=== PATIENT | female | born 1955 | race Caucasian/White ===

== ENCOUNTER 2017-04-07 14:00 | Outpatient (RCR) | payer BC ==
[~2017-04-07 14:00] MED LIST: HYDR-6045 RC; LIDO30CR3 TP; LORA-1455 PO; ONDA8TAB94 PO; XELOD500PT GT
--- NOTE | 2017-04-07 17:22 | PT PLAN OF CARE ---
Physician: GARETH Tesfaye Patient is being seen: 1x/MO Therapist: Kayla Carcamo, PT, DPT, CLT Medical Diagnosis: Stage IV Rectal Cancer Treatment Diagnosis: Stage IV Rectal Cancer Date of Onset: 12/08/15 Date of Initial Evaluation: 01/06/17 Date patient was last seen: 04/07/17 Number of treatments: 7 Number of cancellations/No shows: 0 INTERVENTIONS: Manual Therapy/STM/MET Strengthening/condition Ice/Heat Range of Motion Spinal Stabilization Ultrasound Stretching Iontophoresis Neuromuscular Re-ed Closed Chain Program Electrical Stim Posture/Body mechanics Gait Trg/Balance Trg Biofeedback Home Exercise Program Mech./Manual Traction Therapeutic Activities Pelvic Floor GOALS: In 2 months pt will maintain FACT-G scores >100/108 indicating maintenance of functional status and well-being throughout treatment. In 2 months pt will maintain strength of LE B of > 4/5 in all major muscle groups indicating increased functional ability to perform ADL's. In 4 months pt will maintain FACT-G scores >90/108 indicating maintenance of functional status and well-being throughout treatment. PATIENT'S GOAL: Maintain function and QOL. Status of Patient's Goals: In Progress Patient Compliance: Good Prognosis: Fair Reasons for continuing therapy:Pt shows good resolvent of previous piriformis syndrome and SIJ pain without any current complaints. Mild neuropathy has developed which was reduced with manual therapy and exercise. Pt shows slight edema which reduces with gravity at this time in the L LE. Circumferential measurements were made with recommendation for possible compression garments. Pt was educated on the possibility of onset of lymphedema with inguinal lymph nodes affected and will be monitored for progression of status at next treatment session. Posture: Forward trunk lean. ROM: LE and UE ROM WFL Strength: LE MMT: Hip: flexion: B 5/5, ext: L 4/5, R 4+/5, Abd: B 4+/5, Add: B 4 /5, Knee: Flexion: L 4+/5, R 5/5, Ext: B 5/5, Ankle: PF/DF: B 5/5 Palpation: Edema present in the L LE from the hip to the ankle. Mild pitting is noted on the anterior aspect of the L parikh. Edema is soft to the touch without fibrosis or any skin changes or redness. Pt denies any tenderness with palpation. Negative Stemmer's sign. Outcome Measures: FACT-G Outcome measure Initial Eval: PWB: 26, SWB: 28, EWB: 24 , FWB: 28, Total: 106 FACT-G Outcome measure Initial 04/07/17: PWB: 26, SWB: 24.5, EWB: 24, FWB: 26, Total: 100.5 ECOG Performance Status: Grade 2 Sensation: Neuropathy noted in the fingers and toes B. If you have any questions or concerns, please feel free to contact me at [phone]. Thank you, Kayla Carcamo, PT, DPT, CLT MTDD
--- NOTE | 2017-07-03 08:21 | PT PLAN OF CARE ---
Physician: GARETH Tesfaye Patient is being seen: 1x/MO Therapist: Kayla Carcamo, PT, DPT, CLT Medical Diagnosis: Stage IV Rectal Cancer Treatment Diagnosis: Stage IV Rectal Cancer Date of Onset: 12/08/15 Date of Initial Evaluation: 01/06/17 Date patient was last seen: 04/07/17 Number of treatments: 7 Number of cancellations/No shows: 0 INTERVENTIONS: Manual Therapy/STM/MET Strengthening/condition Ice/Heat Range of Motion Spinal Stabilization Ultrasound Stretching Iontophoresis Neuromuscular Re-ed Closed Chain Program Electrical Stim Posture/Body mechanics Gait Trg/Balance Trg Biofeedback Home Exercise Program Mech./Manual Traction Therapeutic Activities Pelvic Floor GOALS: In 2 months pt will maintain FACT-G scores >100/108 indicating maintenance of functional status and well-being throughout treatment. MET In 2 months pt will maintain strength of LE B of > 4/5 in all major muscle groups indicating increased functional ability to perform ADL's. MET In 4 months pt will maintain FACT-G scores >90/108 indicating maintenance of functional status and well-being throughout treatment. MET PATIENT'S GOAL: Maintain function and QOL. Status of Patient's Goals: 3/3 MET Patient Compliance: Good Prognosis: Fair Reasons for discharge from therapy: Judith is to discharge from physical therapy at this time secondary to pt progressing to oral medication only for oncological treatment and completion of 3/3 functional goals. At the time of discharge pt showed good resolvent of previous piriformis syndrome and SIJ pain without any current complaints. Mild neuropathy has developed which was reduced with manual therapy and exercise. Pt was to be monitored for development of edema but has had no reported problems with this since. Upon discharge pt is to continue with HEP neuropathy and strength exercises and stretching for continued progress. Posture: Forward trunk lean. ROM: LE and UE ROM WFL Strength: LE MMT: Hip: flexion: B 5/5, ext: L 4/5, R 4+/5, Abd: B 4+/5, Add: B 4 /5, Knee: Flexion: L 4+/5, R 5/5, Ext: B 5/5, Ankle: PF/DF: B 5/5 Palpation: Edema present in the L LE from the hip to the ankle. Mild pitting is noted on the anterior aspect of the L parikh. Edema is soft to the touch without fibrosis or any skin changes or redness. Pt denies any tenderness with palpation. Negative Stemmer's sign. Outcome Measures: FACT-G Outcome measure Initial Eval: PWB: 26, SWB: 28, EWB: 24 , FWB: 28, Total: 106 FACT-G Outcome measure Initial 04/07/17: PWB: 26, SWB: 24.5, EWB: 24, FWB: 26, Total: 100.5 ECOG Performance Status: Grade 2 Sensation: Neuropathy noted in the fingers and toes B. If you have any questions or concerns, please feel free to contact me at . Thank you, Kayla Carcamo, PT, DPT, CLT MTDD
== END 2017-04-07 18:00 | disposition home or self-care (01) ==
LOC: PT 14:00
PROVIDERS: ATTEND Nurse Practitioner Family
DX: C18.9 Malignant neoplasm of colon, unspecified (principal); C78.00 Secondary malignant neoplasm of unspecified lung; C78.7 Secondary malignant neoplasm of liver and intrahepatic bile duct; M62.81 Muscle weakness (generalized)

== ENCOUNTER 2017-06-26 20:06 | Emergency (ER) | payer BC ==
[~2017-06-26] VITALS: Ht 157.5 cm; Wt 72.6 kg
--- NOTE | 2017-06-26 20:11 | ER Report ---
History and Physical Time Seen By MD: 20:10 HPI/ROS CHIEF COMPLAINT: Fever HISTORY OF PRESENT ILLNESS: 62-year-old female with a history of rectal cancer, undergoing chemotherapy. Patient underwent bronchoscopy today for lung biopsy. Patient has metastasis of her rectal cancer to her lungs. Tonight she developed a fever documented by temporal scan by her family to 105.6. Patient also underwent aspiration of her port to attempt to unplug it. Patient notes no hemoptysis. She notes no photophobia or stiff neck. She notes a mild headache. She's had no nausea, vomiting or diarrhea. She's had no dysuria, frequency or hematuria. REVIEW OF SYSTEMS: Respiratory: No cough, no dyspnea. Cardiovascular: No chest pain, no palpitations. Gastrointestinal: No vomiting, no abdominal pain. Musculoskeletal: No back pain. Allergies: Coded Allergies: No Known Drug Allergies (Unverified , 06/26/17) Home Meds Active Scripts Levofloxacin 500 Mg Tab (LEVAQUIN 500 MG TAB) 500 Mg Tablet, 500 MG PO DAILY for infection, #6 TAB Prov:HALIMA PERES DO 06/26/17 Lidocaine/Prilocaine (LIDOCAINE-PRILOCAINE CREAM) 30 Gm Cream..g., 30 GM TP before port access, #1 G apply a small amount over the port 30 minutes prior to access to numb the area Prov:ISH PEÑA ASSISTANT CONTROLLER-BC, ONC 01/06/17 Reported Medications Cholecalciferol (Vitamin D3) (VITAMIN D3) 1,000 Unit Tablet, 1000 UNIT PO QDAY, TAB 06/26/17 [Protandum] No Conflict Check, PO QDAY 06/26/17 [Vitmain B12] No Conflict Check, PO QDAY 06/26/17 Lactobacillus Combo No.10 (PROBIOTIC) 1 Each Capsule, 1 EACH PO QDAY, CAPSULE 06/26/17 [Vitamin B6] No Conflict Check, PO QDAY 06/26/17 Fish Oil/Dha/Epa (FISH OIL 1,200 MG FISH OIL) 1 Each Capsule, 1 EACH PO QDAY, CAPSULE 06/26/17 Discontinued Reported Medications Capecitabine (XELODA) 500 Mg Tab, 500 MG GT, TAB 01/23/17 Discontinued Scripts Lorazepam (ATIVAN) 0.5 Mg Tablet, 0.5 MG PO Q4-6H Y for NAUSEA/VOMITING, #30 TAB 0 Refills Prov:ISH PEÑA ASSISTANT CONTROLLER-BC, ONC 01/06/17 Ondansetron (ZOFRAN ODT) 8 Mg Tab.rapdis, 8 MG PO Q8H for Nausea, #30 TAB 1 Refill Prov:ISH PEÑA ASSISTANT CONTROLLER-BC, ONC 01/06/17 Hydrocortisone (ANUSOL-HC) 30 Gm Cream..g., 30 GM RC 5XD Y for PAIN, #30 G 1 Refill Prov:TROY BELLE MD 07/25/16 Past Medical/Surgical History ONCOLOGY HISTORY She was diagnosed with stage 4 rectal cancer in November of 2015. She pursued Xeloda with radiation therapy followed by SBRT and heat therapy with her alternative medicine therapy doctors for her oligometastatic liver disease. She declined standard chemotherapy with combination chem plus/minus Avastin. She had a PET scan in May of 2016 which overall looked well. We were concerned about some potential progression in the liver. Given her SBRT and heat therapy, this may have been a false positive, however. Continues alternative medicine therapy with Dr. Blanco. In July 2016, progression of the primary tumor based on exam and she would like to consider surgery. She had definitive surgery to the primary tumor by Dr. Symone Weathers in [place] and that was complicated by a wound requiring a wound vac. She has recovered from this fully. She does have some areas of metastatic disease including an area in the lung that she chose to have a metastasectomy in [place]. This did not treat all of her disease and so I still recommend palliative chemotherapy after this. I believe the chance of cure is small, but we can get meaningful life with good quality of life for quite some time by controlling the disease. Her quality of life is the most important feature and we may be making dose adjustments as needed to balance effectiveness and toxicity. PAST MEDICAL HISTORY Rectal cancer, otherwise unremarkable. Reviewed Nurses Notes: Yes Old Medical Records Reviewed: Yes Constitutional Vital Sign - Last 24 Hours 06/26/17 06/26/17 06/26/17 06/26/17 20:10 20:10 20:21 20:30 Temp 100.8 Pulse 111 97 Resp 24 B/P (MAP) 140/80 111/71 (84) Pulse Ox 85 93 O2 Delivery Room Air O2 Flow Rate 2.0 06/26/17 06/26/17 06/26/17 06/26/17 20:36 21:00 21:06 21:21 Pulse 89 83 87 Resp 25 26 B/P (MAP) 113/72 (86) Pulse Ox 94 95 94 06/26/17 06/26/17 06/26/17 06/26/17 21:26 21:30 21:41 21:41 Temp 98.4 Pulse 83 85 Resp 26 21 B/P (MAP) 101/53 (69) Pulse Ox 94 95 06/26/17 06/26/17 06/26/17 06/26/17 22:18 22:26 22:30 22:41 Pulse 73 77 B/P (MAP) 112/84 (93) 94/51 (65) Pulse Ox 94 94 06/26/17 06/26/17 06/26/17 06/26/17 22:46 22:51 23:00 23:06 Pulse 73 74 79 B/P (MAP) 92/53 (66) Pulse Ox 94 94 92 06/26/17 06/26/17 06/26/17 06/26/17 23:11 23:13 23:22 23:22 Pulse 75 65 Resp 16 Pulse Ox 94 93 O2 Delivery Nasal Cannula O2 Flow Rate 1.0 1.0 06/26/17 06/26/17 06/26/17 06/26/17 23:23 23:26 23:31 23:32 Pulse 67 72 75 Resp 16 B/P (MAP) 93/55 (68) Pulse Ox 90 88 06/26/17 23:46 Pulse 75 Pulse Ox 87 Physical Exam General Appearance: The patient is alert, has no immediate need for airway protection and no current signs of toxicity. Vital signs stable, temperature 101.4 HEENT: Pupils equal and round no injection. TMs normal, oropharynx without redness or exudate Respiratory: Chest is non tender, lungs are clear to auscultation., Dressing over right subclavian port site Cardiac: regular rate and rhythm, faint murmur at the apex, per patient, is chronic Gastrointestinal: Abdomen is soft and non tender, no masses, bowel sounds normal. Musculoskeletal: Neck: Neck is supple and non tender. No lymphadenopathy, no JVD, no meningismus Extremities have full range of motion and are non tender. Skin: No rashes or lesions. DIFFERENTIAL DIAGNOSIS: After history and physical exam differential diagnosis was considered for adult fever including but not limited to viral syndromes including influenza, urinary tract infection, pneumonia and sepsis. Medical Decision Making Data Points Result Diagram: 06/26/17202406/26/172024 Laboratory Hematology Test 01/20/17 00:00 06/26/17 20:08 06/26/17 20:25 06/26/17 20:33 Neutrophils # 1.4 K/CUMM (2.0-8.5) Hematocrit 38.0 % (40-53) Hemoglobin 11.9 G/DL (13-18) Platelet Count 385 K/CUMM (130-420) White Blood Count 4.3 10^3/MM3 (3.5-10.5) Urine Color Yellow Urine Clarity Clear Urine pH 5.0 pH (4.8-9.5) Urine Specific [place] 1.013 Urine Protein Negative mg/dL (NEGATIVE) Urine Glucose (UA) Negative mg/dL (NEGATIVE) Urine Ketones Trace mg/dL (NEGATIVE) Urine Blood Small (NEGATIVE) Urine Nitrite Negative (NEGATIVE) Urine Bilirubin Negative (NEGATIVE) Urine Urobilinogen Negative mg/dL (0.2-1.9) Urine Leukocyte Esterase Negative (NEGATIVE) Urine RBC <1 /HPF (0-2/HPF) Urine WBC 2 /HPF (0-5/HPF) Urine Squamous Epithelial Cells None /LPF (</=FEW) Urine Bacteria Few /HPF (NONE-FEW) Urine Mucus None /HPF (NONE-FEW) Red Blood Count 4.39 M/uL (4.17-5.56) Mean Corpuscular Volume 91.3 fL (80.0-96.0) Mean Corpuscular Hemoglobin 30.6 pg (26.0-33.0) Mean Corpuscular Hemoglobin Concent 33.5 g/dL (32.0-36.0) Red Cell Distribution Width 27.4 % (11.5-14.5) Mean Platelet Volume 6.9 fL (7.2-11.1) Neutrophils (%) (Auto) 89.7 % (39.4-72.5) Lymphocytes (%) (Auto) 3.7 % (17.6-49.6) Monocytes (%) (Auto) 3.4 % (4.1-12.4) Eosinophils (%) (Auto) 0.3 % (0.4-6.7) Basophils (%) (Auto) 2.9 % (0.3-1.4) Nucleated RBC Relative Count (auto) 0.0 /100WBC Neutrophils # (Auto) 9.7 K/uL (2.0-7.4) Lymphocytes # (Auto) 0.4 K/uL (1.3-3.6) Monocytes # (Auto) 0.4 K/uL (0.3-1.0) Eosinophils # (Auto) 0.0 K/uL (0.0-0.5) Basophils # (Auto) 0.3 K/uL (0.0-0.1) Nucleated RBC Absolute Count (auto) 0.00 K/uL Peripheral Blood Smear Yes Y/N D-Dimer Quantitative (PE/DVT) 2.63 ug/ml (0-0.50) Sodium Level 134 mmol/L (137-145) Potassium Level 3.6 mmol/L (3.5-5.0) Chloride Level 100 mmol/L (98-107) Carbon Dioxide Level 22 mmol/L (22-31) Blood Urea Nitrogen 11 mg/dl (7-18) Creatinine 0.70 mg/dl (0.52-1.04) Glomerular Filtration Rate Calc > 60.0 Random Glucose 131 mg/dl (75-110) Calcium Level 9.1 mg/dl (8.4-10.2) Total Bilirubin 3.2 mg/dl (0.2-1.3) Aspartate Amino Transf (AST/SGOT) 40 U/L (0-35) Alanine Aminotransferase (ALT/SGPT) 49 U/L (0-56) Alkaline Phosphatase 141 U/L (0-126) C-Reactive Protein 1.5 mg/dl (<1.0) Total Protein 7.3 gm/dl (6.3-8.2) Albumin 3.9 g/dl (3.5-5.0) Influenza Type A Antigen Negative (NEGATIVE) Influenza Type B Antigen Negative (NEGATIVE) Test 06/26/17 21:04 Lactate 0.9 mmol/L (0.7-2.1) Chemistry Test 01/20/17 00:00 06/26/17 20:08 06/26/17 20:25 06/26/17 20:33 Neutrophils # 1.4 K/CUMM (2.0-8.5) Hematocrit 38.0 % (40-53) 40.1 % (34.0-47.0) Hemoglobin 11.9 G/DL (13-18) 13.4 g/dL (12.0-16.0) Platelet Count 385 K/CUMM (130-420) 174 K/uL (150-450) White Blood Count 4.3 10^3/MM3 (3.5-10.5) 10.8 k/uL (4.5-11.0) Urine Color Yellow Urine Clarity Clear Urine pH 5.0 pH (4.8-9.5) Urine Specific [place] 1.013 Urine Protein Negative mg/dL (NEGATIVE) Urine Glucose (UA) Negative mg/dL (NEGATIVE) Urine Ketones Trace mg/dL (NEGATIVE) Urine Blood Small (NEGATIVE) Urine Nitrite Negative (NEGATIVE) Urine Bilirubin Negative (NEGATIVE) Urine Urobilinogen Negative mg/dL (0.2-1.9) Urine Leukocyte Esterase Negative (NEGATIVE) Urine RBC <1 /HPF (0-2/HPF) Urine WBC 2 /HPF (0-5/HPF) Urine Squamous Epithelial Cells None /LPF (</=FEW) Urine Bacteria Few /HPF (NONE-FEW) Urine Mucus None /HPF (NONE-FEW) Red Blood Count 4.39 M/uL (4.17-5.56) Mean Corpuscular Volume 91.3 fL (80.0-96.0) Mean Corpuscular Hemoglobin 30.6 pg (26.0-33.0) Mean Corpuscular Hemoglobin Concent 33.5 g/dL (32.0-36.0) Red Cell Distribution Width 27.4 % (11.5-14.5) Mean Platelet Volume 6.9 fL (7.2-11.1) Neutrophils (%) (Auto) 89.7 % (39.4-72.5) Lymphocytes (%) (Auto) 3.7 % (17.6-49.6) Monocytes (%) (Auto) 3.4 % (4.1-12.4) Eosinophils (%) (Auto) 0.3 % (0.4-6.7) Basophils (%) (Auto) 2.9 % (0.3-1.4) Nucleated RBC Relative Count (auto) 0.0 /100WBC Neutrophils # (Auto) 9.7 K/uL (2.0-7.4) Lymphocytes # (Auto) 0.4 K/uL (1.3-3.6) Monocytes # (Auto) 0.4 K/uL (0.3-1.0) Eosinophils # (Auto) 0.0 K/uL (0.0-0.5) Basophils # (Auto) 0.3 K/uL (0.0-0.1) Nucleated RBC Absolute Count (auto) 0.00 K/uL Peripheral Blood Smear Yes Y/N D-Dimer Quantitative (PE/DVT) 2.63 ug/ml (0-0.50) Glomerular Filtration Rate Calc > 60.0 Calcium Level 9.1 mg/dl (8.4-10.2) Total Bilirubin 3.2 mg/dl (0.2-1.3) Aspartate Amino Transf (AST/SGOT) 40 U/L (0-35) Alanine Aminotransferase (ALT/SGPT) 49 U/L (0-56) Alkaline Phosphatase 141 U/L (0-126) C-Reactive Protein 1.5 mg/dl (<1.0) Total Protein 7.3 gm/dl (6.3-8.2) Albumin 3.9 g/dl (3.5-5.0) Influenza Type A Antigen Negative (NEGATIVE) Influenza Type B Antigen Negative (NEGATIVE) Test 06/26/17 21:04 Lactate 0.9 mmol/L (0.7-2.1) Coagulation Test 06/26/17 20:25 D-Dimer Quantitative (PE/DVT) 2.63 ug/ml Urinalysis Test 06/26/17 20:08 Urine Color Yellow Urine Clarity Clear Urine pH 5.0 pH (4.8-9.5) Urine Specific [place] 1.013 Urine Protein Negative mg/dL (NEGATIVE) Urine Glucose (UA) Negative mg/dL (NEGATIVE) Urine Ketones Trace mg/dL (NEGATIVE) Urine Blood Small (NEGATIVE) Urine Nitrite Negative (NEGATIVE) Urine Bilirubin Negative (NEGATIVE) Urine Urobilinogen Negative mg/dL (0.2-1.9) Urine Leukocyte Esterase Negative (NEGATIVE) Urine RBC <1 /HPF (0-2/HPF) Urine WBC 2 /HPF (0-5/HPF) Urine Squamous Epithelial Cells None /LPF (</=FEW) Urine Bacteria Few /HPF (NONE-FEW) Urine Mucus None /HPF (NONE-FEW) Microbiology Microbiology Date/Time Source Procedure Growth Status 06/26/17 20:45 Blood Peripheral Draw Blood Culture - Preliminary NO GROWTH AFTER 1 DAY, REINCUBATED Resulted 06/26/17 20:25 Blood Peripheral Draw Blood Culture - Preliminary NO GROWTH AFTER 1 DAY, REINCUBATED Resulted EKG/Imaging Imaging X-ray: Two-view chest x-ray was obtained. I viewed the images myself on the PACS system. My interpretation of the images is: There are postoperative changes and scarring in the right middle lobe. There is intact. Port. There is no pneumothorax or infiltrate. The radiologist interpretation had no clinically significant variation from this interpretation. Results: CT scan of the CTA pulmonary angiogram was obtained. The results of the study are CT angiogram of the chest: Indication: Hypoxia. Bronchoscopy was performed earlier the same day. Technique: Helical CT was performed through the chest following IV contrast enhancement with 75 cc of Isovue 370. Multiplanar reconstructions and MIP images are reviewed. One of the following dose optimization techniques was utilized in the performance of this exam: Automated exposure control; adjustment of the mA and/ or kV according to the patient's size; or use of an iterative reconstruction technique. Specific details can be referenced in the facility's radiology CT exam operational policy. Comparison: 03/28/2017 Pulmonary arteries: There is uniform contrast enhancement. There are no signs of pulmonary emboli. Aorta and great vessels: There is uniform contrast enhancement. There are no signs of dissection or aneurysm. Heart and pericardial soft tissues: Stable. There is no evidence of pericardial effusion. Mediastinal soft tissues: Extensive lymph node enlargement has developed within the mediastinum and bilateral hilar regions, which represents a significant interval change. Lung centeno: There are chronic post-operative changes and fibrosis in the right upper lobe. Small areas of parenchymal opacity are now observed in the periphery of both lower lobes, which may represent inflammation or atelectasis. No new areas of parenchymal consolidation or volume loss are identified. There are no signs of discrete soft tissue mass or nodules. Pleural spaces: There is no evidence of effusion, thickening, calcification, or pneumothorax. Skeletal structures: There are some old rib fractures on the right. There are chronic degenerative arthritic changes in the thoracic spine. No acute interval changes are identified. Upper abdomen: There are stable postoperative changes in the right lobe of the liver. No acute interval changes are noted in the upper abdomen. IMPRESSION: No evidence of pulmonary emboli. Extensive lymph node enlargement has developed in the mediastinum and bilateral hilar regions. The study was read by the radiologist. I viewed the images myself on the PACS system. ED Course/Re-evaluation Clinical Indication for ER IV: Hydration, IV Access ED Course Patient was admitted to an examination room. H&P was done. The differential diagnoses was considered. Patient was pancultured. Patient was treated with IV fluid hydration. She taken Tylenol at home. Her diagnostic studies returned a elevated d-dimer of 2.63. Her white blood cell count is only mildly elevated 11.4 with a left shift. Her chest x-ray is clear. Her urinalysis was unremarkable. Patient has no obvious source. Her rapid influenza was negative. She'll be covered with Rocephin and Levaquin. I did offer her admission. She was reluctant to be admitted to the hospital. Her pulse ox is borderline at 89%. We did discuss the option of going home on O2, but she declined that as well. She is advised to follow-up with oncology clinic in the next 2-3 days. Decision to Disposition Date: Jun 26, 2017 Decision to Disposition Time: 23:22 Depart Departure Latest Vital Signs Vital Signs Date Time Temp Pulse Resp B/P (MAP) Pulse Ox O2 Delivery O2 Flow Rate FiO2 06/26/17 23:46 75 87 06/26/17 23:32 93/55 (68) 06/26/17 23:23 16 06/26/17 23:22 Nasal Cannula 1.0 06/26/17 21:41 98.4 Impression: Primary Impression: Fever Additional Impressions: Hypoxia Rectal cancer Condition: Improved Disposition: HOME OR SELF-CARE New Scripts Levofloxacin 500 Mg Tab (LEVAQUIN 500 MG TAB) 500 Mg Tablet 500 MG PO DAILY for infection, #6 TAB Prov: HALIMA PERES DO 06/26/17 Patient Instructions: Fever in Adults (ED) Additional Instructions: Follow-up with your oncology doctors if within 2 days Return to the ER for any worsening Problem Qualifiers Primary Impression: Fever Fever type: unspecified Qualified Codes: R50.9 - Fever, unspecified HALIMA PERES DO Jun 26, 2017 20:11
[2017-06-26] MEDS ORDERED: ACETAMINOPHEN 325 MG TAB PO ONE (20:20)
[2017-06-26] MEDS ORDERED: NS(*) 0.9% 1000 ML BAG 1,000 ML IV ONE (20:20)
[2017-06-26] MEDS ORDERED: LACT1CAP9 PO (20:31)
[2017-06-26] MEDS ORDERED: PROTANDUM PO (20:31)
[2017-06-26] MEDS ORDERED: VITAMIN B6 PO (20:31)
[2017-06-26] MEDS ORDERED: VITMAIN B12 PO (20:31)
[2017-06-26] MEDS ORDERED: CHOL10005 PO (20:31)
[2017-06-26] MEDS ORDERED: FISH1CAP15 PO (20:31)
[2017-06-26 20:35] LABS: PLATELET COUNT, AUTOMATED 174 K/uL (150-450)
--- NOTE | 2017-06-26 21:34 | RADIOLOGY IMAGING REPORT ---
FACILITY: [facility] [place] PATIENT NAME: Judith Trujillo : 1955 MR: [id number] V: [id number] EXAM DATE: ORDERING PHYSICIAN: HALIMA PERES TECHNOLOGIST: Location: [facility] - [place] Patient: Judith Trujillo : 1955 Visit/Account:[id number] Date of Sevice: 06/26/2017 CHEST: Indication: Fever. History of lung biopsy earlier today. Technique: Frontal and lateral views were obtained. Comparison: CT scan dated 03/28/2017. Skeletal and soft tissue structures: There are mild degenerative changes in the thoracic spine. No ac gabbi skeletal deformity is identified. Heart and mediastinum: Within normal limits. A port catheter is in satisfactory position. Lung centeno: There are postoperative changes in the right upper lung field, with linear parenchymal s carring. No other focal parenchymal abnormalities are identified. There is no evidence of vascular co ngestion. Pleural spaces: There is no evidence of pneumothorax or pleural effusion. There is minimal pleural th ickening on the right. Impression: No acute process is clearly identified. Report Dictated By: Justin Ayoub MD at 06/26/2017 9:26 PM Report E-Signed By: Justin Ayoub MD at 06/26/2017 9:30 PM WSN:[id number]
[2017-06-26] MEDS ORDERED: IOPAMIDOL 76% 75 ML INFUS BTL 75 ML ONE (21:55)
[2017-06-26] MEDS ORDERED: NS 0.9% 50 ML VIAL 100 ML ONE (21:55)
--- NOTE | 2017-06-26 22:54 | RADIOLOGY IMAGING REPORT ---
FACILITY: [facility] - [place] PATIENT NAME: Judith Trujillo : 1955 MR: [id number] V: [id number] EXAM DATE: ORDERING PHYSICIAN: HALIMA PERES TECHNOLOGIST: Location: [facility] - [place] Patient: Judith Trujillo : 1955 Visit/Account:[id number] Date of Sevice: 06/26/2017 CT angiogram of the chest: Indication: Hypoxia. Bronchoscopy was performed earlier the same day. Technique: Helical CT was performed through the chest following IV contrast enhancement with 75 cc of Isovue 370. Multiplanar reconstructions and MIP images are reviewed. One of the following dose optimization techniques was utilized in the performance of this exam: Autom ated exposure control; adjustment of the mA and/or kV according to the patient's size; or use of an i terative reconstruction technique. Specific details can be referenced in the facility's radiology C T exam operational policy. Comparison: 03/28/2017 Pulmonary arteries: There is uniform contrast enhancement. There are no signs of pulmonary emboli. Aorta and great vessels: There is uniform contrast enhancement. There are no signs of dissection or a neurysm. Heart and pericardial soft tissues: Stable. There is no evidence of pericardial effusion. Mediastinal soft tissues: Extensive lymph node enlargement has developed within the mediastinum and b ilateral hilar regions, which represents a significant interval change. Lung centeno: There are chronic post-operative changes and fibrosis in the right upper lobe. Small are as of parenchymal opacity are now observed in the periphery of both lower lobes, which may represent inflammation or atelectasis. No new areas of parenchymal consolidation or volume loss are identified. There are no signs of discrete soft tissue mass or nodules. Pleural spaces: There is no evidence of effusion, thickening, calcification, or pneumothorax. Skeletal structures: There are some old rib fractures on the right. There are chronic degenerative ar thritic changes in the thoracic spine. No acute interval changes are identified. Upper abdomen: There are stable postoperative changes in the right lobe of the liver. No acute interv al changes are noted in the upper abdomen. IMPRESSION: No evidence of pulmonary emboli. Extensive lymph node enlargement has developed in the me diastinum and bilateral hilar regions. Report Dictated By: Justin Ayoub MD at 06/26/2017 10:30 PM Report E-Signed By: Justin Ayoub MD at 06/26/2017 10:49 PM WSN:[id number]
[2017-06-26] MEDS ORDERED: cefTRIAXone(*) 1 GM VIAL 1 GM in NS(*) 0.9% 100 ML ADDVANT BAG 100 ML IVPB ONE (23:05)
[2017-06-26] MEDS ORDERED: LEVOFLOXACIN 500 MG TAB PO ONE (23:05)
[2017-06-26] MEDS ORDERED: ALBUTEROL/IPRATROPIUM 3 ML NEB NEB ONE (23:10)
[2017-06-26] MEDS ORDERED: LEVO-85 PO (23:27)
[2017-06-26 23:32] VITALS: BP 93/55
== END 2017-06-27 00:09 | disposition home or self-care (01) ==
LOC: ER 20:38
DX: C20 Malignant neoplasm of rectum (principal); C78.02 Secondary malignant neoplasm of left lung; C78.01 Secondary malignant neoplasm of right lung; R09.02 Hypoxemia; R50.9 Fever, unspecified
CPT/HCPCS: 71046; 71275; 81001; 83605; 85025; 85379; 86140; 87040; 87502; 94640; 96361; 96365; 99284; J0696; J7030; J7050; J7620; Q9967; 82040; 82247; 82310; 82374; 82435; 82565; 82947; 84075; 84132; 84155; 84295; 84450; 84460; 84520

== ENCOUNTER 2017-08-23 14:00 | Outpatient (RCR) | payer BC ==
[2017-06-15 15:02] VITALS: BP 112/75
--- NOTE | 2017-06-15 16:36 | ONC Progress Note - NP.Halsey ---
Patient History Date of Service Jun 15, 2017 Reason For Visit/HPI Patient is seen in the clinic today for follow-up of her stage IV rectal cancer. Patient is currently on palliative chemotherapy with Xeloda. Previously she was on oxaliplatin however this was discontinued on 05/08/2017 due to significant side effects. Patient had a PET CT scan completed and this was reviewed today. Unfortunately patient is experiencing significant hand-foot syndrome from the oral chemotherapy grade II. In addition she has interval development of multiple hypermetabolic mediastinal and bilateral hilar lymph nodes. Patient has increasing hypermetabolism of the right lateral hepatic lobe resection site. Patient continues to work. Overall she is feeling well and reports that other then hand-foot syndrome she is asymptomatic. Problem List (1) Stage IV carcinoma of rectum (2) Rectal cancer Oncology History She was diagnosed with stage 4 rectal cancer in November of 2015. She pursued Xeloda with radiation therapy followed by SBRT and heat therapy with her alternative medicine therapy doctors for her oligometastatic liver disease. She declined standard chemotherapy with combination chem plus/minus Avastin. She had a PET scan in May of 2016 which overall looked well. Her was a concern of progression in the liver. Given her SBRT and heat therapy, this may have been a false positive, however. Continues alternative medicine therapy with Dr. Blanco. In July 2016, progression of the primary tumor based on exam and she would like to consider surgery. She had definitive surgery to the primary tumor by Dr. Symone Weathers in [place] and that was complicated by a wound requiring a wound vac. She has recovered from this fully. She does have some areas of metastatic disease including an area in the lung that she chose to have a metastasectomy in [place]. This did not treat all of her disease the patient was started on oral Xeloda and oxaliplatin. 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 Patient is experiencing hand-foot syndrome and interval development of hypermetabolic disease in the mediastinal and hilar lymph nodes on single agent Xeloda. I have recommended patient to follow with Dr. Arnold to discuss plan of care. 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 Medications and Allergies Active Scripts Lidocaine/Prilocaine (LIDOCAINE-PRILOCAINE CREAM) 30 Gm Cream..g., 30 GM TP before port access, #1 G apply a small amount over the port 30 minutes prior to access to numb the area Prov:MARIANAISH J SOFTWARE ENGINEER [employer]-BC, ONC 01/06/17 Lorazepam (ATIVAN) 0.5 Mg Tablet, 0.5 MG PO Q4-6H Y for NAUSEA/VOMITING, #30 TAB 0 Refills Prov:MARIANAISH J SOFTWARE ENGINEER [employer]-BC, ONC 01/06/17 Ondansetron (ZOFRAN ODT) 8 Mg Tab.rapdis, 8 MG PO Q8H for Nausea, #30 TAB 1 Refill Prov:ISH PEÑA SOFTWARE ENGINE[employer]-BC, ONC 01/06/17 Hydrocortisone (ANUSOL-HC) 30 Gm Cream..g., 30 GM RC 5XD Y for PAIN, #30 G 1 Refill Prov:TROY BELLE MD 07/25/16 Reported Medications Capecitabine (XELODA) 500 Mg Tab, 500 MG GT, TAB 01/23/17 Review of System/Physical Exam Review of Systems All Systems Reviewed/Normal: Yes, Except as Noted Neurologic: Numbness of Hands, Tingling of Hands, Numbness of Feet, Tingling of Feet Skin: Positive for Erythema, Positive for Dry Skin Physical Exam Vital Signs Temperature: 97.1 Pulse: 89 BP Systolic: 112 BP Diastolic: 75 Respiratory Rate: 16 O2 SAT: 92 O2 Delivery: Height (inches) 61.50 Weight lb: Weight oz: Weight Kg (Trevor): Pain: 4 ECOG Score: 1 General: Stable, Well Developed, Well Nourished, Not In Acute Distress Lungs: Clear to Auscultation Heart: Regular Rate, Regular Rhythm Psychiatric: Mood appears normal, Affect appears normal Skin: Dry Desquamation, Moderate Erythema, Severe Erythema (grade 2 hand-foot syndrome with mild desquamation.) Diagnostic Studies Diagnostic Studies Laboratory Laboratory Tests 01/20/17 00:00 Neutrophils # 1.4 Laboratory Tests 01/20/17 00:00: Neutrophils # 1.4, Hematocrit 38.0, Hemoglobin 11.9, Platelet Count 385, White Blood Count 4.3 Assessment and Plan Assessment & Plan Ms. Trujillo is a very pleasant 62-year-old female with the followin. Stage IV rectal cancer with oligometastatic disease to the liver and the lung, treated with local therapy. 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 Oxaliplatin was discontinued on 2016 3. Treatment of her oligometastatic disease includes radiation to the liver and lung, as well as a metastasectomy to the lung. She is at high risk for relapse, so was started on palliative Xeloda and oxaliplatin indefinitely, however, her neuropathy has progressed to the point that oxaliplatin was discontinued on 05/08/2017. Patient currently has hand-foot syndrome with deep beefy red erythema, neuropathy and dry thick skin. PET/CT scan reviewed today shows interval development of multiple hypermetabolic mediastinal and bilateral hilar lymph nodes. Increasing hypermetabolism in the right lateral hepatic lobe resection site. Chronic appearing postoperative changes. Patient is referred to Dr. Arnold to discuss plan of care. Patient completed oral Xeloda yesterday. She is encouraged to not reorder her next cycle until after discussing with Dr. Arnold plan of care. She will follow with him tomorrow in clinic. Patient has not had recent labs due to the holidays and was not interested in completing those today. She will discuss this with Dr. Arnold area No further follow-up appointment is scheduled at this time until after office visit with Dr. Arnold tomorrow. I personally spent a total of 40 minutes. Of that 40 minutes was counseling/ coordination of patient's care. See my note above for details. Copies to: TROY BELLE MD, NANCY J SOFTWARE ENGINEER [employer]-BC, ONC Jun 15, 2017 16:36
[2017-07-03 15:17] VITALS: BP 110/73
[2017-07-03] MEDS: LIDOCAINE/SOD BICARB 8.4% SYR ID PRN (15:45)
[2017-07-26 14:24] VITALS: BP 119/80
[2017-07-26] MEDS: HEPARIN FLSH (PORT) 500 UN/5ML IVP PRN (14:28)
[~2017-08-23 14:00] MED LIST changes: +ALTEPLASE RECOMB 2 MG VIAL IVP PRN; +CHOL10005 PO; +DEXTROSE 5%(*) 100 ML BAG 100 ML IVPB PRN; +FISH1CAP15 PO; +LACT1CAP9 PO; +LEVO-85 PO; +NS(*) 0.9% 100 ML BAG 100 ML IVPB PRN; +NS(*) 0.9% 500 ML BAG 500 ML IV PRN; +PROTANDUM PO; +VITAMIN B6 PO; +VITMAIN B12 PO; +WATER STERILE 10 ML VIAL IVP PRN; +XELOD500PT PO
[2017-08-23 14:03] VITALS: BP 114/81
[2017-08-23] MEDS: LIDOCAINE/SOD BICARB 8.4% SYR ID PRN (14:18)
[2017-08-23] MEDS: HEPARIN FLSH (PORT) 500 UN/5ML IVP PRN (14:18)
== END 2017-09-12 ==
LOC: SPU 14:00
PROVIDERS: ATTEND Internal Medicine
DX: C20 Malignant neoplasm of rectum (principal)
CPT/HCPCS: 96374; 96523; 99212; A4216; J1642; J2997

== ENCOUNTER 2017-11-22 11:49 | Outpatient (RCR) | payer BC ==
[2017-09-20 12:58] VITALS: BP 121/87
[2017-09-20] MEDS: LIDOCAINE/SOD BICARB 8.4% SYR ID PRN (13:07)
[2017-09-20] MEDS: HEPARIN FLSH (PORT) 500 UN/5ML IVP PRN (13:08)
[2017-10-19 11:15] VITALS: BP 126/73
[2017-10-19] MEDS: HEPARIN FLSH (PORT) 500 UN/5ML IVP PRN (11:25)
[~2017-11-22 11:49] MED LIST changes: +WATER FOR INJ,STERILE 20 ML IVP PRN; -WATER STERILE 10 ML VIAL IVP PRN
[2017-11-22] MEDS: HEPARIN FLSH (PORT) 500 UN/5ML IVP PRN (11:56)
[2017-11-22] MEDS: LIDOCAINE/SOD BICARB 8.4% SYR ID PRN (11:56)
[2017-11-22 11:57] VITALS: BP 121/82
== END 2017-12-18 ==
LOC: SPU 11:49
PROVIDERS: ATTEND Internal Medicine
DX: C20 Malignant neoplasm of rectum (principal)
CPT/HCPCS: 96523; J1642

== ENCOUNTER 2018-02-27 14:00 | Outpatient (RCR) | payer BC ==
[2017-12-27] MEDS: HEPARIN FLSH (PORT) 500 UN/5ML IVP PRN (11:59)
[2017-12-27 12:00] VITALS: BP 115/83
[2018-01-29 14:29] VITALS: BP 162/89
[2018-01-29] MEDS: LIDOCAINE/SOD BICARB 8.4% SYR ID PRN (14:32)
[2018-01-29] MEDS: HEPARIN FLSH (PORT) 500 UN/5ML IVP PRN (14:32)
--- NOTE | 2018-01-30 16:46 | ONCOLOGY FOLLOW UP NOTE ---
EVENT DATE: January 29, 2018 CHIEF COMPLAINT/REASON FOR VISIT Ms. Trujillo is a pleasant, 62-year-old female with stage IV rectal cancer, having received palliative Xeloda and oxaliplatin as well as local therapy to the liver and lung, who is currently in complete remission, here for followup. HISTORY OF PRESENT ILLNESS Erick returns. Please see her oncology history below for more details. She has been on an aggressive regimen for stage IV disease, including SBRT and heat therapy to the liver, as well as metastatectomy of area in the lung in [place]. She is now off chemotherapy, most recently on Xeloda, and her PET scan in September looked well. Her labs today that we have so far including the CBC are normal, although I do not have the CMP or the CEA yet. She continues alternative medicine therapy and increased exercise. Since I last saw her, she does have some hypopigmentation of the skin, but this may be simply due to more pigmentation in the summer months, noting the areas of hyperpigmentation that I did see well before. I did not discuss this with the patient as she states that she feels great with no new issues. She did have significant neuropathy with the oxaliplatin, but is able to participate with her activities of daily living without issue. ONCOLOGY HISTORY She was diagnosed with stage IV rectal cancer in November 2015. She pursued Xeloda with radiation therapy, followed by SBRT and heat therapy with her alternative medicine therapy doctors for her oligometastatic liver disease. She declined standard chemotherapy with combination chem plus/minus Avastin. She had a PET scan in May 2016 which overall looked well. We were concerned about some potential progression in the liver. Given her SBRT and heat therapy, this may have been a false positive, however. Continues alternative medicine therapy with Dr. Blanco. In July 2016, progression of the primary tumor based on exam, and she would like to consider surgery. She had definitive surgery to the primary tumor by Dr. Symone Weathers in [place], and that was complicated by a wound requiring a wound VAC. She has recovered from this fully. She does have some areas of metastatic disease including an area in the lung that she chose to have a metastasectomy in [place]. This did not treat all of her disease, and so I still recommend palliative chemotherapy after this. I believe the chance of cure is small, but we can get meaningful life with good quality of life for quite some time by controlling the disease. Her quality of life is the most important feature, and we may be making dose adjustments as needed to balance effectiveness and toxicity. PAST MEDICAL HISTORY Rectal cancer, otherwise unremarkable. FAMILY HISTORY She has one family member with colon cancer. Previously discussed genetic counseling if desired, but did not pursue this. SOCIAL HISTORY The patient has presented by herself today. REVIEW OF SYSTEMS CONSTITUTIONAL: No fevers or chills. Tolerable fatigue. HEENT: No headache or vision changes. CARDIOVASCULAR: No chest pain, dyspnea on exertion, or edema. RESPIRATORY: No shortness of breath, wheeze, or cough. GASTROINTESTINAL: No nausea or vomiting. GENITOURINARY: No dysuria or hematuria. MUSCULOSKELETAL: No weakness or joint pain. PSYCHIATRIC: No anxiety or depression. ENDOCRINE: No heat or cold intolerance. SKIN: She has dry skin on the hands with rash from oxaliplatin. IMMUNOLOGIC: No issues with infection. NEUROLOGIC: Continued sensory neuropathy with cold sensitivity. Remainder of the 14-point review of systems otherwise negative. PHYSICAL EXAMINATION VITAL SIGNS: Blood pressure 162/89, pulse 71, respiratory rate 16, temperature 97.8 Fahrenheit, oxygen saturation 94% on room air. Weight 78.5 kg. Pain zero/ 10. Fatigue zero/10. GENERAL: Stable condition, resting comfortably in the chair. HEENT: Normocephalic, atraumatic. SKIN: Some areas of hypopigmentation. CARDIOVASCULAR: Regular rate and rhythm. LUNGS: Clear to auscultation bilaterally. No dullness at the bases. ABDOMEN: Soft, nontender, nondistended. EXTREMITIES: No clubbing, cyanosis, or edema. Remainder of physical exam otherwise unremarkable. IMPRESSION AND PLAN Ms. Trujillo is a very pleasant, 62-year-old female with the followin. Stage IV rectal cancer with oligometastatic disease to the liver and the lung, treated with local therapy. The most recent scan in September showed no evidence of disease. Her labs so far look well, and we will wait for her pending labs. 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 3. High risk for relapse, and we are hopeful that her chemotherapy holiday continues for quite some time. Her next scans are due in April 2018, and I will see her at that time. I answered her questions today. BILLING Return visit level 3. Total time 15 minutes, counseling time 10. MTDD
[2018-02-27 14:11] VITALS: BP 119/71
[2018-02-27] MEDS: LIDOCAINE/SOD BICARB 8.4% SYR ID PRN (14:13)
[2018-02-27] MEDS: HEPARIN FLSH (PORT) 500 UN/5ML IVP PRN (14:13)
== END 2018-03-26 ==
LOC: SPU 14:00
PROVIDERS: ATTEND Internal Medicine
DX: C20 Malignant neoplasm of rectum (principal); G62.0 Drug-induced polyneuropathy; Z92.21 Personal history of antineoplastic chemotherapy
CPT/HCPCS: 82378; 96523; 99212; J1642; 82040; 82247; 82310; 82374; 82435; 82565; 82947; 84075; 84132; 84155; 84295; 84450; 84460; 84520

== ENCOUNTER 2018-05-01 12:56 | Outpatient (RCR) | payer BC ==
[2018-04-03] MEDS: HEPARIN FLSH (PORT) 500 UN/5ML IVP PRN (14:10)
[2018-04-03 14:21] VITALS: BP 119/75
[~2018-05-01 12:56] MED LIST changes: +LIDOCAINE/SOD BICARB 8.4% SYR ID PRN
[2018-05-01] MEDS: HEPARIN FLSH (PORT) 500 UN/5ML IVP PRN (13:13)
== END 2018-07-01 ==
LOC: SPU 12:56
PROVIDERS: ATTEND Internal Medicine
DX: C20 Malignant neoplasm of rectum (principal)
CPT/HCPCS: 96523; J1642

== ENCOUNTER 2018-11-05 13:46 | Outpatient (RCR) | payer BC ==
[~2018-11-05 13:46] MED LIST changes: -ALTEPLASE RECOMB 2 MG VIAL IVP PRN; -DEXTROSE 5%(*) 100 ML BAG 100 ML IVPB PRN; -LIDOCAINE/SOD BICARB 8.4% SYR ID PRN; -NS(*) 0.9% 100 ML BAG 100 ML IVPB PRN; -NS(*) 0.9% 500 ML BAG 500 ML IV PRN; -WATER FOR INJ,STERILE 20 ML IVP PRN
[2018-11-05 13:53] VITALS: BP 125/82
--- NOTE | 2018-11-06 16:40 | ONCOLOGY FOLLOW UP NOTE ---
EVENT DATE: November 05, 2018 CHIEF COMPLAINT/REASON FOR VISIT Ms. Trujillo is a pleasant 63-year-old female with stage IV rectal cancer, having received palliative Xeloda and oxaliplatin as well as local therapy to the liver and lung, who remains in complete remission, here for followup. HISTORY OF PRESENT ILLNESS Erick pack. Please see her Oncology History below for more details. She has been on an aggressive regimen for stage IV disease including SBRT and heat therapy to the liver, as well as a metastasectomy of the lung area of concern in [place]. She is currently off chemotherapy, and her PET scan from earlier this month 2018 looks excellent. She is in remission. She has some evidence of osteoporosis and potentially some radiation changes to the bone. She should be continuing her calcium and vitamin D. She should also consider a bone density study and follow up with her primary care provider. She has no new rash or changes in her skin tone, which was an issue previously. We do not have her labs yet today from [facility], but these are ordered and pending. I am very encouraged by her PET scan results. She feels excellent. No fevers, chills, or significant weight change. No red flag symptoms of concern. No diarrhea, melena, hematochezia, mucus, blood loss, or any other concerns. ONCOLOGY HISTORY She was diagnosed with stage IV rectal cancer in November 2015. She pursued Xeloda with radiation therapy, followed by SBRT and heat therapy with her alternative medicine therapy doctors for her oligometastatic liver disease. She declined standard chemotherapy with combination chem plus/minus Avastin. She had a PET scan in May 2016, which overall looked well. We were concerned about some potential progression in the liver. Given her SBRT and heat therapy, this may have been a false positive, however. Continues alternative medicine therapy with Dr. Blanco. In July 2016, progression of the primary tumor based on exam, and she would like to consider surgery. She had definitive surgery to the primary tumor by Dr. Symone Weathers in [place], and that was complicated by a wound requiring a wound VAC. She has recovered from this fully. She does have some areas of metastatic disease including an area in the lung that she chose to have a metastasectomy in [place]. This did not treat all of her disease, and so I still recommend palliative chemotherapy after this. I believe the chance of cure is small, but we can get meaningful life with good quality of life for quite some time by controlling the disease. Her quality of life is the most important feature, and we may be making dose adjustments as needed to balance effectiveness and toxicity. PAST MEDICAL HISTORY Rectal cancer, otherwise unremarkable. FAMILY HISTORY She has one family member with colon cancer. Previously discussed genetic counseling if desired, but did not pursue this. SOCIAL HISTORY The patient has presented by herself today. REVIEW OF SYSTEMS CONSTITUTIONAL: No fevers or chills. Tolerable fatigue. HEENT: No headache or vision changes. CARDIOVASCULAR: No chest pain, dyspnea on exertion, or edema. RESPIRATORY: No shortness of breath, wheeze, or cough. GASTROINTESTINAL: No nausea or vomiting. GENITOURINARY: No dysuria or hematuria. MUSCULOSKELETAL: No weakness or joint pain. PSYCHIATRIC: No anxiety or depression. ENDOCRINE: No heat or cold intolerance. SKIN: She has dry skin on the hands with rash from oxaliplatin. IMMUNOLOGIC: No issues with infection. NEUROLOGIC: Continued sensory neuropathy with cold sensitivity. Remainder of the 14-point review of systems otherwise negative. PHYSICAL EXAMINATION VITAL SIGNS: Blood pressure 125/82, pulse 83, respiratory rate 16, temperature 97 Fahrenheit, oxygen saturation 93% on room air. Weight 82.2 kg. Pain 0/10. Fatigue 0/10. GENERAL: Stable condition, resting comfortably in the chair. HEENT: Normocephalic, atraumatic. CARDIOVASCULAR: Regular rate and rhythm. LUNGS: Clear. ABDOMEN: Soft, nontender, nondistended. EXTREMITIES: No clubbing, cyanosis, or edema. PSYCHIATRIC: Normal mood and affect. SKIN: No concerning findings. Remainder of physical exam otherwise unremarkable. IMPRESSION/REPORT/PLAN Ms. Trujillo is a very pleasant 63-year-old female with the followin. Stage IV rectal cancer with oligometastatic disease to the liver and lungs, treated with local therapy. Her skin in October 2018 shows no evidence of disease. We are waiting for pending labs, but I am very encouraged by her PET scan from October 2018. Would like to get annual scans and labs every six months. 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 3. High risk for relapse, but very pleased with how she is doing. I am hopeful that she is cured. I answered all of her questions today. Family meeting with her daughter on the phone today. BILLING Return visit level 4, 30 minutes total time with 20 minutes of counseling and coordination of care. MTDD
== END 2018-12-17 14:51 | disposition home or self-care (01) ==
LOC: ONC 13:46
PROVIDERS: ATTEND Internal Medicine
DX: C20 Malignant neoplasm of rectum (principal); C78.7 Secondary malignant neoplasm of liver and intrahepatic bile duct; C78.00 Secondary malignant neoplasm of unspecified lung; Z92.21 Personal history of antineoplastic chemotherapy; Z92.3 Personal history of irradiation; G62.0 Drug-induced polyneuropathy
CPT/HCPCS: 99212